=== PATIENT | male | born 1960 | race Caucasian/White ===

== ENCOUNTER 2024-07-05 03:18 | Emergency (ER) | payer MEDICAID | END 2024-07-05 03:52 | disposition left against medical advice (07) | LOC: ER 03:31 | DX: Z53.21 Procedure and treatment not carried out due to patient leaving prior to being seen by health care provider (principal) ==

== ENCOUNTER 2025-02-21 02:32 | Inpatient (IN) | payer MEDICAID ==
[~2025-02-21] VITALS: Ht 170.2 cm; Wt 81.6 kg
[2025-02-21] MEDS ORDERED: MORPHINE SULFATE INJ 4 MG/ML DISP.SYRIN ONE ×2 (02:44→08:03)
[2025-02-21] MEDS ORDERED: ONDANSETRON HCL/PF 4 MG/2 ML VIAL ONE (02:44)
[2025-02-21] MEDS ORDERED: MORPHINE SULFATE INJ 2 MG/ML DISP.SYRIN IV ONE (03:00)
[2025-02-21 03:02] LABS: PLATELET COUNT (AUTO) 638 K/uL (150-450); RED BLOOD CELL COUNT(AUTO) 4.67 MIL/uL (4.5-6.0); RED CELL DISTRIBUTION WIDTH 18.2 % (11.5-15.0); WHITE BLOOD COUNT (AUTO) 10.2 K/uL (4.3-11.0)
[2025-02-21] MEDS: ONDANSETRON HCL/PF 4 MG/2 ML VIAL IV ONE (03:04)
[2025-02-21] MEDS: MORPHINE SULFATE INJ 2 MG/ML DISP.SYRIN IV ONE ×3 (03:04→08:20)
[2025-02-21 03:08] LABS: CALCIUM, SERUM 8.9 mg/dL (8.5-10.1); CREATININE 0.8 mg/dL (0.6-1.3); SODIUM SERUM 137.0 mmol/L (136-145); UREA NITROGEN, BLOOD 9.0 mg/dL (7-18)
[2025-02-21 03:21] LABS: INR 1.08 (0.91-1.10)
[2025-02-21 04:27] LABS: APPEARANCE,URINE CLEAR (CLEAR); BLOOD, URINE TRACE-INTA Ery/uL (NEGATIVE); LEUKOCYTE ESTERASE ,URINE NEGATIVE (NEGATIVE); NITRITE, URINE NEGATIVE (NEGATIVE); UGLUCOSE NEGATIVE (NEGATIVE)
[2025-02-21 04:51] LABS: ADD URINE CULTURE NO; SQUAMOUS EPITHELIAL CELL,UR 0-2 /HPF (None Seen)
[2025-02-21] MEDS ORDERED: MORPHINE SULFATE INJ 2 MG/ML DISP.SYRIN ONE (04:57)
[2025-02-21] MEDS ORDERED: ZOLP10TA2 PO (11:32)
[2025-02-21] MEDS ORDERED: ONDANSETRON HCL/PF 4 MG/2 ML VIAL IVP PRN (13:30)
[2025-02-21] MEDS ORDERED: DOSING PER PHARMACY-VANCOMYCIN IV XX PRN (13:30)
[2025-02-21] MEDS ORDERED: ACETAMINOPHEN 325 MG TABLET PO PRN (13:30)
[2025-02-21] MEDS ORDERED: MAG HYDROX/AL HYDROX/SIMETH 30 ML UDC PO PRN (13:30)
[2025-02-21] MEDS ORDERED: ACETAMINOPHEN 650 MG/20.3 ML UDC NG PRN (13:30)
[2025-02-21] MEDS ORDERED: MAGNESIUM HYDROXIDE 30 ML UDC PO PRN (13:30)
[2025-02-21] MEDS ORDERED: Z GUARD REMEDY 4 OZ OINT TP PRN (13:30)
[2025-02-21] MEDS ORDERED: HYDROMORPHONE INJ SYRINGE 0.5 MG in IV D5W 50 ML IV PRN (13:30)
[2025-02-21] MEDS: HYDROMORPHONE 1 MG/1 ML DISP.SYRIN IV PRN (13:40)
[2025-02-21] MEDS: VANCOMYCIN 1 GM in IV D5W 250ml IV ONE ×2 (13:55→15:12)
[2025-02-21 14:15] VITALS: BP 115/80; TEMP 98.2; O2SAT 98
[2025-02-21] MEDS ORDERED: ANESTHESIA TRAY IN PYXIS 1 EA TRAY MC ONE (15:45)
[2025-02-21] MEDS ORDERED: FENTANYL PF 100MCG/2ML AMPUL ONE (15:47)
[2025-02-21] MEDS ORDERED: MIDAZOLAM HCL 2 MG/2ML VIAL ONE (15:47)
[2025-02-21] MEDS ORDERED: POLYMYXIN B SULFATE 500,000 UNITS ONE (16:40)
[2025-02-21] MEDS ORDERED: GENTAMICIN 80 MG/2 ML VIAL ONE (16:40)
[2025-02-21] MEDS: PIPERACILLIN /TAZOBACTAM 3.375 G in IV D5W 50 ML IV SCH (18:11)
[2025-02-21] MEDS: IV D5/ 0.9% NACL 1,000 ML IV PRN (21:23)
[2025-02-21] MEDS: ZOLPIDEM TARTRATE 5 MG TABLET PO PRN (21:23)
[2025-02-21 21:32] VITALS: BP 96/61; TEMP 97.7; O2SAT 92
[2025-02-22] MEDS: HYDROCODONE/APAP 5/325MG TABLET PO PRN (00:05)
[2025-02-22] MEDS: VANCOMYCIN HCL 1.25 GM in IV D5W 250 ML IV SCH (03:09)
[2025-02-22 06:28] LABS: PLATELET COUNT (AUTO) 625 K/uL (150-450); RED BLOOD CELL COUNT(AUTO) 4.15 MIL/uL (4.5-6.0); RED CELL DISTRIBUTION WIDTH 17.4 % (11.5-15.0); WHITE BLOOD COUNT (AUTO) 11.6 K/uL (4.3-11.0)
[2025-02-22 06:36] LABS: CALCIUM, SERUM 8.6 mg/dL (8.5-10.1); CREATININE 0.8 mg/dL (0.6-1.3); PHOSPHORUS 3.6 mg/dL (2.5-4.9); SODIUM SERUM 141.0 mmol/L (136-145); UREA NITROGEN, BLOOD 8.0 mg/dL (7-18)
[2025-02-22 08:00] VITALS: BP 115/69; TEMP 97.5; O2SAT 100
[2025-02-22 08:09] LABS: IRON, SERUM 10 ug/dl (50-175)
[2025-02-22] MEDS ORDERED: AMOX-430 PO (12:50)
[2025-02-22] MEDS ORDERED: FERR-56 PO (12:50)
[2025-02-22] MEDS ORDERED: OXYC-128 PO (12:50)
[2025-02-22 17:10] VITALS: BP 118/81; TEMP 98.2; O2SAT 95
== END 2025-02-22 19:12 | disposition home or self-care (01) | DRG 501 ==
LOC: ER 02:36 → MED 11:03
PROVIDERS: ADMIT Internal Medicine; ATTEND Internal Medicine
PROC: 0VB50ZZ Excision of Scrotum, Open Approach (ICD-10-PCS; 2025-02-21)
PROC: 0VQ50ZZ Repair Scrotum, Open Approach (ICD-10-PCS; principal; 2025-02-21 16:00)
DX: S31.31XA Laceration without foreign body of scrotum and testes, initial encounter (principal); D50.9 Iron deficiency anemia, unspecified; X58.XXXA Exposure to other specified factors, initial encounter; Y93.89 Activity, other specified; Y92.098 Other place in other non-institutional residence as the place of occurrence of the external cause
CPT/HCPCS: 36415; 71045-TC; 71250-TC; 73630-TC; 76870-TC; 80048-TC; 81001; 83540-TC; 83735-TC; 84100-TC; 85025-TC; 85730-TC; A4223; G0378; J1100; J1171; J1580; J2250; J2270; J2405; J2543; J2704; J2765; J3010; J3373; J7030; J7042; J7050; J7060

== ENCOUNTER 2025-03-13 15:03 | Emergency (ER) | payer MEDICAID ==
[~2025-03-13] VITALS: Ht 167.6 cm; Wt 68.0 kg
[~2025-03-13 15:03] MED LIST: AMOX-430 PO; FERR-56 PO; OXYC-128 PO; ZOLP10TA2 PO
[2025-03-13 15:19] VITALS: BP 134/86; TEMP 98.5
[2025-03-13] MEDS ORDERED: ACETAMINOPHEN ES 500 MG TABLET ONE (15:59)
[2025-03-13] MEDS ORDERED: IBUPROFEN 600 MG TABLET ONE (16:00)
[2025-03-13] MEDS ORDERED: TDAP [DIPH/PERTUSSIS/TET] 0.5 ML VIAL IM ONE (16:02)
[2025-03-13] MEDS: IBUPROFEN 600 MG TABLET PO ONE (16:10)
[2025-03-13] MEDS: TDAP [DIPH/PERTUSSIS/TET] 0.5 ML VIAL IM ONE (16:10)
[2025-03-13] MEDS: ACETAMINOPHEN ES 500 MG TABLET PO ONE (16:11)
[2025-03-13] MEDS ORDERED: CEPH-570 PO (16:28)
[2025-03-13] MEDS ORDERED: SULF1TAB48 PO (16:28)
[2025-03-13] MEDS ORDERED: IBUP-1490 PO (16:28)
[2025-03-13] MEDS ORDERED: LIDOCAINE 2%-EPI 1:100,000 30 ML VIAL ONE (16:57)
[2025-03-13] MEDS ORDERED: HYDR-3972 PO (17:18)
[2025-03-13] MEDS: LIDOCAINE 1%-EPI 1:100,000 20 ML VIAL TP ONE (17:26)
[2025-03-13 17:27] VITALS: O2SAT 96
== END 2025-03-13 17:28 | disposition home or self-care (01) ==
LOC: ER 15:10
DX: L03.113 Cellulitis of right upper limb (principal)
CPT/HCPCS: 99283; 90471; 90715; 73090; J3490